=== PATIENT | male | born 1945 | race Caucasian/White ===

== ENCOUNTER 2024-11-23 05:00 | Outpatient (RCR) | payer MEDICARE, SELFPAY | END 2024-12-22 23:59 | disposition home or self-care (01) | LOC: GPT 05:00 | PROVIDERS: Visit Provider Orthopaedic Surgery Sports Medicine | DX: Z48.89 Encounter for other specified surgical aftercare (principal) | CPT/HCPCS: 97110; 97112; 97140; 97161 ==

== ENCOUNTER 2025-01-22 07:50 | Outpatient (RCR) | payer MEDICARE, SELFPAY | END 2025-01-22 23:59 | disposition home or self-care (01) | LOC: GPT 07:50 | PROVIDERS: Visit Provider Orthopaedic Surgery Sports Medicine | DX: Z47.89 Encounter for other orthopedic aftercare (principal) | CPT/HCPCS: 97110; 97112; 97140 ==

== ENCOUNTER 2025-02-16 07:46 | Outpatient (RCR) | payer MEDICARE, SELFPAY | END 2025-02-21 23:59 | disposition home or self-care (01) | LOC: GPT 07:46 | PROVIDERS: Visit Provider Orthopaedic Surgery Sports Medicine | DX: M25.511 Pain in right shoulder (principal); Z48.89 Encounter for other specified surgical aftercare | CPT/HCPCS: 97110; 97112; 97140 ==

== ENCOUNTER 2025-03-01 07:52 | Outpatient (RCR) | payer MEDICARE, SELFPAY | END 2025-03-01 10:27 | disposition home or self-care (01) | LOC: GPT 07:52 | PROVIDERS: Visit Provider Orthopaedic Surgery Sports Medicine | DX: Z48.89 Encounter for other specified surgical aftercare (principal) | CPT/HCPCS: 97110; 97140 ==